=== PATIENT | female | born 1965 | race Caucasian/White ===

== ENCOUNTER 2016-11-28 10:14 | Emergency (ER) | payer OTHER ==
[~2016-11-28] VITALS: Wt 114.7 kg
[~2016-11-28 10:14] MED LIST: DICL100G37 TOP; MET25 PO; METF500T4 PO; NAPR-688 PO; PRED20TA PO; TRAM50TA2 PO
[2016-11-28] MEDS ORDERED: CEFTRIAXONE 1 GM/50 ML (PMX) 50 ML IVPB STA (10:58)
[2016-11-28] MEDS ORDERED: KETOROLAC 30 MG INJ IV STA (10:58)
[2016-11-28] MEDS ORDERED: SOD CHLORIDE 0.9% 1,000 ML IV STA (10:58)
[2016-11-28] MEDS ORDERED: TRIMETHOPRIM/SULFAMETHOX (DS) TAB PO ONE (11:00)
[2016-11-28 11:18] LABS: ADD SCAN DIFF NO
[2016-11-28 11:24] LABS: HEMATOCRIT 42.3 % (37.0-47.0); HEMOGLOBIN 13.4 g/dl (12.0-16.0); MEAN CORPUSCULAR HGB CONC 31.7 g/dl (32.0-37.0); MEAN CORPUSCULAR VOLUME 88.3 fl (82.0-101.0); MEAN PLATELET VOLUME 10.3 fl (7.4-10.4); PLATELET COUNT 280 10^3/UL (140-415); RED BLOOD COUNT 4.79 10^6/ul (4.20-5.40); RED CELL DISTRIBUTION WIDTH 15.9 % (11.5-14.5); WHITE BLOOD COUNT 23.3 10^3/ul (4.8-10.8)
[2016-11-28 11:29] LABS: ALBUMIN 3.8 g/dl (3.3-4.9)
[2016-11-28 11:30] LABS: POTASSIUM 4.1 mmol/L (3.5-5.1)
[2016-11-28 11:32] LABS: BILIRUBIN,INDIRECT 0.6 mg/dl (0-1.1); BILIRUBIN,TOTAL 0.6 mg/dl (0.2-1.3); CREATININE 0.47 mg/dl (0.44-1.00)
[2016-11-28 11:33] LABS: ALBUMIN/GLOBULIN RATIO 1.05; CALCIUM 9.1 mg/dl (8.4-10.2); TOTAL PROTEIN 7.4 g/dl (6.1-8.1)
[2016-11-28] MEDS ORDERED: INSULIN LISPRO 100 UNIT/ML VIAL SC STA (11:41)
[2016-11-28 11:52] LABS: ADD UMIC NO; URINE BILIRUBIN (Dip) NEGATIVE (NEGATIVE); URINE BLOOD (Dip) NEGATIVE (NEGATIVE); URINE COLOR LT. YELLOW (YELLOW); URINE KETONES (Dip) TRACE (NEGATIVE); URINE LEUKOCYTE ESTERASE (Dip) NEGATIVE (NEGATIVE); URINE NITRITE (Dip) NEGATIVE (NEGATIVE); URINE TOTAL PROTEIN (Dip) NEGATIVE (NEGATIVE); URINE UROBILINOGEN (Dip) 0.2 E.U./dL (0.1-1.0)
--- NOTE | 2016-11-28 11:58 | RADRPT ---
PROCEDURE: Bilateral breast ultrasound, complete. CLINICAL INDICATION: 51-year-old female with breast pain. Cellulitis. Rule out abscess. TECHNIQUE: Whole breast and axillary ultrasound is performed. COMPARISON: None FINDINGS: Ultrasound of the breast shows skin thickening and edema of the right breast. There is no underlyin g abscess or fluid collection identified. The left breast appears normal. IMPRESSION: Diffuse skin thickening and edema of the right breast suggestive of mastitis. No evidence of fluid collection or abscess. Diagnostic mammography is advised to complete breast imaging workup. BIRADS 0 (Incomplete - need additional imaging evaluation) RPTAT: VV .Willie Nam MD, Date Time Electronically viewed and signed by .Willie Nam MD, on 11/28/2016 11:58 .L/
[2016-11-28] MEDS ORDERED: BACTDS PO (13:33)
[2016-11-28] MEDS ORDERED: CEPH-443 PO (13:33)
[2016-11-28] MEDS ORDERED: AMOX1TAB10 PO (13:33)
[2016-11-28] MEDS ORDERED: IBUP-1542 PO (13:35)
--- NOTE | 2016-11-28 13:39 | ERD ---
ER Documentation Chief Complaint Date/Time DATE: 11/28/16 TIME: 13:36 Chief Complaint RIGHT BREAST PAIN X 2 DAYS HPI This 51-year-old female presents with right breast pain and redness for 2 days. She denies fevers, vomiting or inciting events. Started with a small bump on the lateral aspect of the right breast. ROS All systems reviewed and are negative except as per history of present illness. Medications Home Meds Active Scripts Ibuprofen* (Motrin*) 600 Mg Tab, 600 MG PO Q6, #20 TAB Prov:CLARA RODRIGUEZ MD 11/28/16 Cephalexin* (Keflex*) 500 Mg Capsule, 500 MG PO QID for 10 Days, CAP Prov:CLARA RODRIGUEZ MD 11/28/16 Sulfamethoxazole-Trimethoprim* (Bactrim* DS) 800-160 Mg Tab, 1 TAB PO BID for 10 Days, TAB Prov:CLARA RODRIGUEZ MD 11/28/16 Diclofenac Sodium* (Voltaren* Gel) 1% -100 Gm Gel, 2 GM TOP QID, #1 TUB Prov:KELLY ESTRADA PA-C 09/26/15 Naproxen* (Naproxen*) 500 Mg Tablet, 500 MG PO BID Y for PAIN, #30 TAB Prov:KELLY ESTRADA PA-C 09/26/15 Metformin* (Glucophage*) 500 Mg Tab, 500 MG PO DAILY, #30 TAB Prov:LAQUITA GARCIA MD 07/04/15 Reported Medications Methotrexate* (Methotrexate*) 2.5 Mg Tab, 2.5 MG PO weekly 06/22/13 Prednisone (Prednisone) 20 Mg Tablet, 20 MG PO DAILY 04/01/13 Tramadol HCl (Tramadol HCl) 50 Mg Tablet, 50 MG PO Q6 11/10/11 Discontinued Scripts Amoxicillin/Potassium Clav (Amox-Clav 875-125 mg Tablet) 875-125 mg Tab, 1 TAB PO BID for 10 Days, #14 TAB Prov:CLARA RODRIGUEZ MD 11/28/16 Allergies Allergies: Coded Allergies: No Known Drug Allergy (Verified Allergy, Mild, 11/28/16) PMhx/Soc History of Surgery: Yes (C SECTION ) Anesthesia Reaction: No Hx Neurological Disorder: No Hx Respiratory Disorders: No Hx Cardiac Disorders: No Hx Psychiatric Problems: No Hx Miscellaneous Medical Probl: Yes (arthritis, dm) Hx Alcohol Use: No Hx Substance Use: No Hx Tobacco Use: No Smoking Status: Never smoker Physical Exam Vitals Vital Signs Date Time Temp Pulse Resp B/P Pulse Ox O2 Delivery O2 Flow Rate FiO2 11/28/16 10:18 98.0 72 18 134/61 98 Physical Exam Const: [] Alert, [id number]. Head: Atraumatic Eyes: Normal Conjunctiva ENT: Normal External Ears, Nose and Mouth. Neck: Full range of motion..~ No meningismus. Resp: Clear to auscultation bilaterally Cardio: Regular rate and rhythm, no murmurs Abd: Soft, non tender, non distended. Normal bowel sounds Skin: No petechiae or rashes. There is some warmth and erythema extending approximately 50% of the right breast. There is no appreciable fluctuance, significant induration and no active discharge for the small abrasion on the lateral aspect of the right breast Back: No midline or flank tenderness Ext: No cyanosis, or edema Neur: Awake and alert Psych: Normal Mood and Affect Result Diagram: 11/28/16 1100 11/28/16 1100 Results 24 hrs Laboratory Tests Test 11/28/16 11:00 11/28/16 11:20 11/28/16 13:34 White Blood Count 23.310^3/ul Red Blood Count 4.7910^6/ul Hemoglobin 13.4g/dl Hematocrit 42.3% Mean Corpuscular Volume 88.3fl Mean Corpuscular Hemoglobin 28.0pg Mean Corpuscular Hemoglobin Concent 31.7g/dl Red Cell Distribution Width 15.9% Platelet Count 21320^3/UL Mean Platelet Volume 10.3fl Neutrophils % 75.0% Band Neutrophils % 16.0% Lymphocytes % 8.0% Monocytes % 1.0% Neutrophils # 17.510^3/ul Lymphocytes # 1.910^3/ul Monocytes # 0.210^3/ul Differential Comment MANUAL DIFF Large Platelets OCCASIONAL Sodium Level 140mmol/L Potassium Level 4.1mmol/L Chloride Level 101mmol/L Carbon Dioxide Level 25mmol/L Anion Gap 18 Blood Urea Nitrogen 8mg/dl Creatinine 0.47mg/dl Glucose Level 431mg/dl Calcium Level 9.1mg/dl Total Bilirubin 0.6mg/dl Direct Bilirubin 0.00mg/dl Indirect Bilirubin 0.6mg/dl Aspartate Amino Transf (AST/SGOT) 32IU/L Alanine Aminotransferase (ALT/SGPT) 33IU/L Alkaline Phosphatase 166IU/L Total Protein 7.4g/dl Albumin 3.8g/dl Globulin 3.60g/dl Albumin/Globulin Ratio 1.05 Lipase 44U/L Urine Color LT. YELLOW Urine Clarity CLEAR Urine pH 6.0 Urine Specific [place] 1.010 Urine Ketones TRACE Urine Nitrite NEGATIVE Urine Bilirubin NEGATIVE Urine Urobilinogen 0.2 E.U./dL Urine Leukocyte Esterase NEGATIVE Urine Hemoglobin NEGATIVE Urine Glucose 0.5%% Urine Total Protein NEGATIVE Bedside Glucose 279mg/dL Current Medications Medications (Trade) Dose Ordered Sig/Lexii Route PRN Reason Start Time Stop Time Status Last Admin Dose Admin Sodium Chloride 1,000 ml @ 1,000 mls/hr Q1H STAT IV 11/28/16 10:58 11/28/16 11:57 DC 11/28/16 11:13 Ceftriaxone Sodium (Rocephin) 50 ml @ 100 mls/hr ONCE STAT IVPB 11/28/16 10:58 11/28/16 11:27 DC 11/28/16 11:13 Trimethoprim/ Sulfamethoxazole (Bactrim (Ds)) 1 tab ONCE ONCE PO 11/28/16 11:00 11/28/16 11:02 DC 11/28/16 11:13 Ketorolac Tromethamine (Toradol) 30 mg ONCE STAT IV 11/28/16 10:58 11/28/16 11:02 DC 11/28/16 11:13 Insulin Human Lispro (Humalog) 10 unit ONCE STAT SC 11/28/16 11:41 11/28/16 11:43 DC 11/28/16 11:48 Procedures/MDM CBC shows white blood cell count of 23. Patient has elevated blood sugar over 400. Patient was given 1 L normal saline and 10 units of Humalog IM. Patient was given Toradol 30 mg IV, Rocephin 1 g IV Bactrim double strength p.o. Patient had improved pain no fevers or Sirs criteria throughout the ED course. Patient presents with a 2 day history of cellulitis or mastoiditis in the right breast. Patient has hyperglycemia as well. Patient has no signs or symptoms of sepsis and we will treat as an outpatient with close follow-up. Patient is advised to have a recheck in 2 days, otherwise sooner for fevers, vomiting, new or worsening symptoms. The patient was stable with no new complaints during the ER course. Clinically, there is no current evidence to suggest meningitis, sepsis, acute abdomen, pneumonia, acute coronary syndrome, pulmonary embolism, or any other emergent condition appearing to require further evaluation or hospitalization. The patient should certainly return for any new or worsening symptoms per the aftercare instructions. They should otherwise follow-up with her primary care doctor for reevaluation this week. Repeat blood sugar was 270. Right breast ultrasound shows no evidence of abscess. Patient was advised to follow-up with primary doctor for mammogram and breast cancer screening. Departure Diagnosis: Primary Impression: Mastitis Additional Impressions: Cellulitis Site of cellulitis: unspecified site Qualified Code: L03.90 - Cellulitis, unspecified cellulitis site Hyperglycemia Condition: Stable Patient Instructions: Hyperglycemia (High Blood Sugar), Mastitis Additional Instructions: CHEQUE OTRO VEZ EN 2 IGLESIAS, MAS PRONTO PARA FIBRE, VOMITO , NUEVA SIMPTOMAS. CLARA RODRIGUEZ MD Nov 28, 2016 13:39
[2016-11-28 13:46] LABS: LYMPHOCYTES # 1.9 10^3/ul (0.8-2.9); MONOCYTE # 0.2 10^3/ul (0.3-0.9); NEUTROPHIL # 17.5 10^3/ul (1.6-7.5)
== END 2016-11-28 13:57 | disposition home or self-care (01) ==
LOC: FTE 10:14
DX: N61.0 Mastitis without abscess (principal); L03.90 Cellulitis, unspecified; E11.65 Type 2 diabetes mellitus with hyperglycemia; Z79.84 Long term (current) use of oral hypoglycemic drugs
CPT/HCPCS: 36415; 76642; 80053; 81003; 82962; 83690; 85025; 96361; 96365; 96372; 96375; J0696; J1815; J1885; J7030; Z7502; Z7610

== ENCOUNTER 2016-12-01 11:55 | Emergency (ER) | payer OTHER ==
[~2016-12-01] VITALS: Wt 90.6 kg
[~2016-12-01 11:55] MED LIST changes: +BACTDS PO; +CEPH-443 PO; +IBUP-1542 PO
[2016-12-01] MEDS ORDERED: TRAM50TA2 PO (12:22)
[2016-12-01] MEDS ORDERED: traMADol 50 MG TAB PO ONE (12:30)
[2016-12-01] MEDS ORDERED: CEFTRIAXONE 1 GM INJ IM ONE (12:30)
[2016-12-01] MEDS ORDERED: LIDOCAINE 1% (MDV) 20 ML INJ SC ONE (12:30)
--- NOTE | 2016-12-01 12:32 | ERD ---
ER Documentation Chief Complaint Date/Time DATE: 12/01/16 TIME: 12:29 Chief Complaint RIGHT BREAST SWELLING AND REDNESS. HERE FOR RECHECK, INCREASED PAIN HPI This 51-year-old female was seen by me 3 days ago for right breast mastitis. She had no abscess at that time. She was given Rocephin and discharged home on Bactrim and Keflex. She is here for recheck. She denies fevers, vomiting. She states that the redness and pain is improved although there is a some slight increase in pain. ROS All systems reviewed and are negative except as per history of present illness. Medications Home Meds Active Scripts Tramadol HCl (Tramadol HCl) 50 Mg Tablet, 50 MG PO Q4 Y for PAIN, #18 TAB Prov:CLARA RODRIGUEZ MD 12/01/16 Ibuprofen* (Motrin*) 600 Mg Tab, 600 MG PO Q6, #20 TAB Prov:CLARA RODRIGUEZ MD 11/28/16 Cephalexin* (Keflex*) 500 Mg Capsule, 500 MG PO QID for 10 Days, CAP Prov:CLARA RODRIGUEZ MD 11/28/16 Sulfamethoxazole-Trimethoprim* (Bactrim* DS) 800-160 Mg Tab, 1 TAB PO BID for 10 Days, TAB Prov:CLARA RODRIGUEZ MD 11/28/16 Diclofenac Sodium* (Voltaren* Gel) 1% -100 Gm Gel, 2 GM TOP QID, #1 TUB Prov:KELLY ESTRADA PA-C 09/26/15 Naproxen* (Naproxen*) 500 Mg Tablet, 500 MG PO BID Y for PAIN, #30 TAB Prov:KELLY ESTRADA PA-C 09/26/15 Metformin* (Glucophage*) 500 Mg Tab, 500 MG PO DAILY, #30 TAB Prov:LAQUITA GARCIA MD 07/04/15 Reported Medications Methotrexate* (Methotrexate*) 2.5 Mg Tab, 2.5 MG PO weekly 06/22/13 Prednisone (Prednisone) 20 Mg Tablet, 20 MG PO DAILY 04/01/13 Tramadol HCl (Tramadol HCl) 50 Mg Tablet, 50 MG PO Q6 11/10/11 Discontinued Scripts Amoxicillin/Potassium Clav (Amox-Clav 875-125 mg Tablet) 875-125 mg Tab, 1 TAB PO BID for 10 Days, #14 TAB Prov:CLARA RODRIGUEZ MD 11/28/16 Allergies Allergies: Coded Allergies: No Known Drug Allergy (Verified Allergy, Mild, 11/28/16) PMhx/Soc History of Surgery: Yes (C SECTION ) Anesthesia Reaction: No Hx Neurological Disorder: No Hx Respiratory Disorders: No Hx Cardiac Disorders: No Hx Psychiatric Problems: No Hx Miscellaneous Medical Probl: Yes (arthritis, dm) Hx Alcohol Use: No Hx Substance Use: No Hx Tobacco Use: No Physical Exam Vitals Vital Signs Date Time Temp Pulse Resp B/P Pulse Ox O2 Delivery O2 Flow Rate FiO2 12/01/16 11:58 97.2 92 21 132/76 98 Physical Exam Const: [] Alert, [id number] per Head: Atraumatic Eyes: Normal Conjunctiva ENT: Normal External Ears, Nose and Mouth. Neck: Full range of motion..~ No meningismus. Resp: Clear to auscultation bilaterally Cardio: Regular rate and rhythm, no murmurs Abd: Soft, non tender, non distended. Normal bowel sounds Skin: No petechiae or rashes. On the right breast there is erythema with less warmth than previous examination. There is also less erythema. There is a small area of tenderness possibly some very superficial localization but no significant abscess appreciated. Back: No midline or flank tenderness Ext: No cyanosis, or edema Neur: Awake and alert Psych: Normal Mood and Affect Results 24 hrs Current Medications Medications (Trade) Dose Ordered Sig/Lexii Route PRN Reason Start Time Stop Time Status Last Admin Dose Admin Ceftriaxone Sodium (Rocephin) 1 gm ONCE ONCE IM 12/01/16 12:30 12/01/16 12:31 Lidocaine (Xylocaine 1% (Mdv) 20 ml) 20 ml ONCE ONCE SC 12/01/16 12:30 12/01/16 12:31 Tramadol HCl (Ultram) 50 mg ONCE ONCE PO 12/01/16 12:30 12/01/16 12:31 Procedures/MDM This patient presents with a partially treated right breast mastitis. It is improving although is not completely localized. Patient may need incision and drainage but it is still too early. Patient will be given Rocephin 1 g IM and instructions continue Bactrim and Keflex and warm compresses and recheck an additional 2-3 days. There is no signs or symptoms of Sirs criteria, sepsis, additional emergent conditions today. She should return sooner however for fevers, vomiting, new symptoms. Departure Diagnosis: Primary Impression: Cellulitis Site of cellulitis: unspecified site Qualified Code: L03.90 - Cellulitis, unspecified cellulitis site Condition: Stable Patient Instructions: Cellulitis Additional Instructions: cheque otro vez 2-3 jackson para cheque otor vez para abscesso. regresa mas pronto para fiebres, nueva simptomas. CLARA RODRIGUEZ MD Dec 01, 2016 12:32
== END 2016-12-01 13:25 | disposition home or self-care (01) ==
LOC: FTE 11:55
DX: L03.90 Cellulitis, unspecified (principal); E11.9 Type 2 diabetes mellitus without complications; Z79.84 Long term (current) use of oral hypoglycemic drugs
CPT/HCPCS: J0696; Z7610; 96372

== ENCOUNTER 2016-12-15 11:24 | Emergency (ER) | payer OTHER ==
[~2016-12-15] VITALS: Ht 152.4 cm; Wt 114.0 kg
[2016-12-15 11:30] VITALS: Ht 152.4 cm; Wt 114.0 kg
[2016-12-15] MEDS ORDERED: BACTDS PO (12:48)
[2016-12-15] MEDS ORDERED: CEPH-443 PO (12:48)
[2016-12-15] MEDS ORDERED: TRAM50TA2 PO (12:49)
[2016-12-15] MEDS ORDERED: IBUP-1542 PO (12:49)
[2016-12-15] MEDS ORDERED: CLINDAMYCIN 300 MG INJ IM ONE (13:00)
[2016-12-15] MEDS ORDERED: IBUPROFEN 600 MG TAB PO ONE (13:00)
[2016-12-15] MEDS ORDERED: traMADol 50 MG TAB PO ONE (13:00)
--- NOTE | 2016-12-15 13:04 | ERD ---
ER Documentation Chief Complaint Date/Time DATE: 12/15/16 TIME: 13:02 Chief Complaint RT BREAST ASBCESS CURRENTLY DRAINING. PREVIOULY AT [facility] ED FOR SAME PROBLEM. HPI This 51-year-old female presents for recheck on right breast mastitis seen by me proximal one half weeks ago 2. She completed her antibiotics complains of drainage from the area of previous redness. Swelling and redness is significantly improved. Her primary complaints of discharge and pain. ROS All systems reviewed and are negative except as per history of present illness. Medications Home Meds Active Scripts Ibuprofen* (Motrin*) 600 Mg Tab, 600 MG PO Q6, #20 TAB Prov:CLARA RODRIGUEZ MD 12/15/16 Tramadol HCl (Tramadol HCl) 50 Mg Tablet, 50 MG PO Q4 Y for PAIN, #20 TAB Prov:CLARA RODRIGUEZ MD 12/15/16 Cephalexin* (Keflex*) 500 Mg Capsule, 500 MG PO QID for 10 Days, CAP Prov:CLARA RODRIGUEZ MD 12/15/16 Sulfamethoxazole-Trimethoprim* (Bactrim* DS) 800-160 Mg Tab, 1 TAB PO BID for 10 Days, TAB Prov:CLARA RODRIGUEZ MD 12/15/16 Tramadol HCl (Tramadol HCl) 50 Mg Tablet, 50 MG PO Q4 Y for PAIN, #18 TAB Prov:CLARA RODRIGUEZ MD 12/01/16 Ibuprofen* (Motrin*) 600 Mg Tab, 600 MG PO Q6, #20 TAB Prov:CLARA RODRIGUEZ MD 11/28/16 Cephalexin* (Keflex*) 500 Mg Capsule, 500 MG PO QID for 10 Days, CAP Prov:CLARA RODRIGUEZ MD 11/28/16 Sulfamethoxazole-Trimethoprim* (Bactrim* DS) 800-160 Mg Tab, 1 TAB PO BID for 10 Days, TAB Prov:CLARA RODRIGUEZ MD 11/28/16 Diclofenac Sodium* (Voltaren* Gel) 1% -100 Gm Gel, 2 GM TOP QID, #1 TUB Prov:KELLY ESTRADA PA-C 09/26/15 Naproxen* (Naproxen*) 500 Mg Tablet, 500 MG PO BID Y for PAIN, #30 TAB Prov:KELLY ESTRADA PA-C 09/26/15 Metformin* (Glucophage*) 500 Mg Tab, 500 MG PO DAILY, #30 TAB Prov:LAQUITA GARCIA MD 07/04/15 Reported Medications Methotrexate* (Methotrexate*) 2.5 Mg Tab, 2.5 MG PO weekly 06/22/13 Prednisone (Prednisone) 20 Mg Tablet, 20 MG PO DAILY 04/01/13 Tramadol HCl (Tramadol HCl) 50 Mg Tablet, 50 MG PO Q6 11/10/11 Allergies Allergies: Coded Allergies: No Known Drug Allergy (Verified Allergy, Mild, 11/28/16) PMhx/Soc History of Surgery: Yes (C SECTION ) Anesthesia Reaction: No Hx Neurological Disorder: No Hx Respiratory Disorders: No Hx Cardiac Disorders: No Hx Psychiatric Problems: No Hx Miscellaneous Medical Probl: Yes (arthritis, dm) Hx Alcohol Use: No Hx Substance Use: No Hx Tobacco Use: No Physical Exam Vitals Vital Signs Date Time Temp Pulse Resp B/P Pulse Ox O2 Delivery O2 Flow Rate FiO2 12/15/16 11:30 98.0 84 20 146/69 97 Physical Exam Const: [] Alert, [id number]. Head: Atraumatic Eyes: Normal Conjunctiva ENT: Normal External Ears, Nose and Mouth. Neck: Full range of motion..~ No meningismus. Resp: Clear to auscultation bilaterally Cardio: Regular rate and rhythm, no murmurs Abd: Soft, non tender, non distended. Normal bowel sounds Skin: No petechiae or rashes. There is improved redness and induration on the right breast. There are 3 areas of superficial drainage without significant residual fluctuance. There is no significant induration or streaking. Back: No midline or flank tenderness Ext: No cyanosis, or edema Neur: Awake and alert Psych: Normal Mood and Affect Results 24 hrs Current Medications Medications (Trade) Dose Ordered Sig/Lexii Route PRN Reason Start Time Stop Time Status Last Admin Dose Admin Clindamycin Phosphate (Cleocin) 600 mg ONCE ONCE IM 12/15/16 13:00 12/15/16 13:01 Ibuprofen (Motrin) 600 mg ONCE ONCE PO 12/15/16 13:00 12/15/16 13:01 12/15/16 12:50 Tramadol HCl (Ultram) 50 mg ONCE ONCE PO 12/15/16 13:00 12/15/16 13:01 12/15/16 12:50 Procedures/MDM This patient presents with right breast mastitis and abscess which is spontaneously draining. She will be given clindamycin 600 mg IM for likely some slight residual infection and will be discharged with prescription to continue Bactrim and Keflex and will be given tramadol and ibuprofen for pain as well. Patient should complete antibiotics, recheck for worsening redness, fevers, new worsening symptoms otherwise follow-up with primary doctor for breast cancer screening and further evaluation. She has previously been recommended to see primary doctor for breast cancer screening but presents today to the ER. Departure Diagnosis: Primary Impression: Abscess Condition: Stable Patient Instructions: Abscess, Antiobiotic Treatment Only Additional Instructions: CONTINUA ANTIBIOTICOS. JOSE RAFAEL ALSTON, BEATA LYNN. CLARA RODRIGUEZ MD Dec 15, 2016 13:04
[2016-12-15 13:56] VITALS: BP 120/58; PULSE 67; RESP 16; TEMP 97.8
== END 2016-12-15 13:56 | disposition home or self-care (01) ==
LOC: FTE 11:24
DX: N61.1 Abscess of the breast and nipple (principal); E11.9 Type 2 diabetes mellitus without complications; Z79.84 Long term (current) use of oral hypoglycemic drugs
CPT/HCPCS: 96372; Z7502; Z7610

== ENCOUNTER 2017-02-16 12:39 | Emergency (ER) | payer OTHER ==
[~2017-02-16] VITALS: Ht 157.5 cm; Wt 113.5 kg
[2017-02-16 12:48] VITALS: Ht 157.5 cm; Wt 113.5 kg
[2017-02-16] MEDS ORDERED: CEPHALEXIN 500 MG CAP PO STA (13:46)
[2017-02-16] MEDS ORDERED: TRIMETHOPRIM/SULFAMETHOX (DS) TAB PO STA (13:46)
[2017-02-16] MEDS ORDERED: IBUPROFEN 600 MG TAB PO STA (13:46)
[2017-02-16] MEDS ORDERED: METF500T PO (13:53)
[2017-02-16] MEDS ORDERED: CEPH-443 PO (13:53)
[2017-02-16] MEDS ORDERED: SULF1TAB31 PO (13:53)
[2017-02-16] MEDS ORDERED: IBUP-1542 PO (14:03)
--- NOTE | 2017-02-16 14:17 | ERD ---
ER Documentation Chief Complaint Date/Time DATE: 02/16/17 TIME: 14:11 Chief Complaint ABSCESS TO BUTTOCKS X 4 DAYS HPI This is a 52-year-old female with history of diabetes type 2 presenting to the emergency department complaining of complaining of abscess to her right buttock for the past 4 days. Patient states the pain is around 7 out of 10. She denies any fevers, drainage. She denies any and medication for this. In addition patient states that she has ran out of her metformin 500mg BID past couple days. ROS All systems reviewed and are negative except as per history of present illness. Medications Home Meds Active Scripts Ibuprofen* (Motrin*) 600 Mg Tab, 600 MG PO Q6H Y for PAIN AND OR ELEVATED TEMP, #30 TAB Prov:JOHANNE MCCANN PA-C 02/16/17 Metformin Hcl (Glucophage) 500 Mg Tablet, 500 MG PO WITH MEALS, #90 TAB Prov:JOHANNE MCCANN PA-C 02/16/17 Sulfamethoxazole/Trimethoprim* (Bactrim Ds* Tablet) 1 Each Tablet, 1 TAB PO BID , #14 TAB Prov:JOHANNE MCCANN PA-C 02/16/17 Cephalexin* (Keflex*) 500 Mg Capsule, 500 MG PO QID for 10 Days, CAP Prov:JOHANNE MCCANN PA-C 02/16/17 Ibuprofen* (Motrin*) 600 Mg Tab, 600 MG PO Q6, #20 TAB Prov:CLARA RODRIGUEZ MD 12/15/16 Tramadol HCl (Tramadol HCl) 50 Mg Tablet, 50 MG PO Q4 Y for PAIN, #20 TAB Prov:CLARA RODRIGUEZ MD 12/15/16 Cephalexin* (Keflex*) 500 Mg Capsule, 500 MG PO QID for 10 Days, CAP Prov:CLARA RODRIGUEZ MD 12/15/16 Sulfamethoxazole-Trimethoprim* (Bactrim* DS) 800-160 Mg Tab, 1 TAB PO BID for 10 Days, TAB Prov:CLARA RODRIGUEZ MD 12/15/16 Tramadol HCl (Tramadol HCl) 50 Mg Tablet, 50 MG PO Q4 Y for PAIN, #18 TAB Prov:CLARA RODRIGUEZ MD 12/01/16 Ibuprofen* (Motrin*) 600 Mg Tab, 600 MG PO Q6, #20 TAB Prov:CLARA RODRIGUEZ MD 11/28/16 Cephalexin* (Keflex*) 500 Mg Capsule, 500 MG PO QID for 10 Days, CAP Prov:CLARA RODRIGUEZ MD 11/28/16 Sulfamethoxazole-Trimethoprim* (Bactrim* DS) 800-160 Mg Tab, 1 TAB PO BID for 10 Days, TAB Prov:CLARA RODRIGUEZ MD 11/28/16 Diclofenac Sodium* (Voltaren* Gel) 1% -100 Gm Gel, 2 GM TOP QID, #1 TUB Prov:KELLY ESTRADA PA-C 09/26/15 Naproxen* (Naproxen*) 500 Mg Tablet, 500 MG PO BID Y for PAIN, #30 TAB Prov:KELLY ESTRADA PA-C 09/26/15 Metformin* (Glucophage*) 500 Mg Tab, 500 MG PO DAILY, #30 TAB Prov:LAQUITA GARCIA MD 07/04/15 Reported Medications Methotrexate* (Methotrexate*) 2.5 Mg Tab, 2.5 MG PO weekly 06/22/13 Prednisone (Prednisone) 20 Mg Tablet, 20 MG PO DAILY 04/01/13 Tramadol HCl (Tramadol HCl) 50 Mg Tablet, 50 MG PO Q6 11/10/11 Allergies Allergies: Coded Allergies: No Known Drug Allergy (Verified Allergy, Mild, 11/28/16) PMhx/Soc History of Surgery: Yes (C SECTION ) Anesthesia Reaction: No Hx Neurological Disorder: No Hx Respiratory Disorders: No Hx Cardiac Disorders: No Hx Psychiatric Problems: No Hx Miscellaneous Medical Probl: Yes (arthritis, dm) Hx Alcohol Use: No Hx Substance Use: No Hx Tobacco Use: No Smoking Status: Never smoker Physical Exam Vitals Vital Signs Date Time Temp Pulse Resp B/P Pulse Ox O2 Delivery O2 Flow Rate FiO2 02/16/17 12:48 98.3 113 18 148/78 98 Physical Exam General: WD/WN, in no apparent distress, non-toxic appearing HENT: NC/AT Eyes: Conjunctiva normal Neck: Supple Pulm: Clear to auscultation, normal labored breathing; no wheezing/rales/ rhonchi heard CV: Good capillary refill GI: Non-distended, no guarding Back: No masses Ext: No clubbing, cyanosis, or edema Neuro: Moves on all fours Skin: 4cm mild erythematous indurated, with central scab, no fluctuance or purulence Psych: Normal mood Results 24 hrs Current Medications Medications (Trade) Dose Ordered Sig/Lexii Route PRN Reason Start Time Stop Time Status Last Admin Dose Admin Cephalexin (Keflex) 500 mg ONCE STAT PO 02/16/17 13:46 02/16/17 13:50 DC 02/16/17 14:09 Trimethoprim/ Sulfamethoxazole (Bactrim (Ds)) 1 tab ONCE STAT PO 02/16/17 13:46 02/16/17 13:50 DC 02/16/17 14:09 Ibuprofen (Motrin) 600 mg ONCE STAT PO 02/16/17 13:46 02/16/17 13:50 DC 02/16/17 14:09 Procedures/MDM This is a 52-year-old female with a history of diabetes type 2 presenting to the emergency department with a small patch of cellulitis on her right buttock, there was no evidence of fluctuance or drainage, no evidence of lymphangitis, osteomyelitis. Patient is appropriate for outpatient antibiotics. Patient has stable vital signs and appears well. In the ED, patient was given Keflex and Bactrim. She was given a prescription for Keflex and Bactrim for 7-10 days. in addition patient has ran out of metformin, I have refilled her prescription for 1 month. Patient stable for discharge for home with precautions to return to emergency department for any worsening symptoms. She understands and agrees with this plan Departure Diagnosis: Primary Impression: Cellulitis Site of cellulitis: buttock Qualified Code: L03.317 - Cellulitis of buttock Condition: Stable Patient Instructions: Abscess, Antiobiotic Treatment Only, Cellulitis Additional Instructions: Visite a campuzano conrado schuster para un EXAMEN.Regrese a estas instalaciones si no se mejora tod esperbamos o tod le dijimos. Lynd toda la medicina kathie y tod se le indic. Regrese a estas instalaciones si no se mejora tod esperbamos o tod le dijimos. Lynd toda la medicina kathie y tod se le indic. Regrese a estas instalaciones si no se mejora tod esperbamos o tod le dijimos. JOHANNE MCCANN PA-C Feb 16, 2017 14:17
== END 2017-02-16 14:21 | disposition home or self-care (01) ==
LOC: FTE 12:39
DX: L03.317 Cellulitis of buttock (principal); E11.9 Type 2 diabetes mellitus without complications; Z79.84 Long term (current) use of oral hypoglycemic drugs
CPT/HCPCS: Z7610 ×3; 99284

== ENCOUNTER 2017-04-08 11:57 | Emergency (ER) | payer OTHER ==
[~2017-04-08] VITALS: Ht 165.1 cm; Wt 114.0 kg
[~2017-04-08 11:57] MED LIST changes: +METF500T PO; +SULF1TAB31 PO
[2017-04-08 12:12] VITALS: Ht 165.1 cm; Wt 114.0 kg
[2017-04-08] MEDS ORDERED: IBUP800T25 PO (12:42)
[2017-04-08] MEDS ORDERED: CEPH-443 PO (12:42)
[2017-04-08] MEDS ORDERED: SULF1TAB31 PO (12:42)
[2017-04-08] MEDS ORDERED: MTF1000T PO (12:42)
--- NOTE | 2017-04-08 12:47 | ERD ---
ER Documentation Chief Complaint Date/Time DATE: 04/08/17 TIME: 12:43 Chief Complaint right hand pain/swelling x 3 days HPI Patient is a 52-year-old female who has 2 complaints. She is diabetic and she ran out of her metformin, she last took yesterday and would like a refill. She also states she has had swelling on her right hand fourth finger secondary to what she thinks is a bug bite although she did not witness the bite. She has pain at the site that is throbbing 8 out of 10. Is been no bleeding or drainage. No fever. No numbness or tingling. ROS All systems reviewed and are negative except as per history of present illness. Medications Home Meds Active Scripts Metformin* (Glucophage*) 1,000 Mg Tablet, 1000 MG PO BID, #60 TAB Prov:ANGIE SALINAS PA-C 04/08/17 Cephalexin* (Keflex*) 500 Mg Capsule, 500 MG PO QID for 7 Days, CAP Prov:ANGIE SALINAS PA-C 04/08/17 Ibuprofen* (Motrin*) 800 Mg Tab, 800 MG PO Q6, #30 TAB Prov:ANGIE SALINAS PA-C 04/08/17 Sulfamethoxazole/Trimethoprim* (Bactrim Ds* Tablet) 1 Each Tablet, 1 TAB PO BID , #14 TAB Prov:ANGIE SALINAS PA-C 04/08/17 Ibuprofen* (Motrin*) 600 Mg Tab, 600 MG PO Q6H Y for PAIN AND OR ELEVATED TEMP, #30 TAB Prov:JOHANNE MCCANN PA-C 02/16/17 Metformin Hcl (Glucophage) 500 Mg Tablet, 500 MG PO WITH MEALS, #90 TAB Prov:JOHANNE MCCANN PA-C 02/16/17 Sulfamethoxazole/Trimethoprim* (Bactrim Ds* Tablet) 1 Each Tablet, 1 TAB PO BID , #14 TAB Prov:JOHANNE MCCANN PA-C 02/16/17 Cephalexin* (Keflex*) 500 Mg Capsule, 500 MG PO QID for 10 Days, CAP Prov:JOHANNE MCCANN PA-C 02/16/17 Ibuprofen* (Motrin*) 600 Mg Tab, 600 MG PO Q6, #20 TAB Prov:CLARA RODRIGUEZ MD 12/15/16 Tramadol HCl (Tramadol HCl) 50 Mg Tablet, 50 MG PO Q4 Y for PAIN, #20 TAB Prov:CLARA RODRIGUEZ MD 12/15/16 Cephalexin* (Keflex*) 500 Mg Capsule, 500 MG PO QID for 10 Days, CAP Prov:CLARA RODRIGUEZ MD 12/15/16 Sulfamethoxazole-Trimethoprim* (Bactrim* DS) 800-160 Mg Tab, 1 TAB PO BID for 10 Days, TAB Prov:CLRAA RODRIGUEZ MD 12/15/16 Tramadol HCl (Tramadol HCl) 50 Mg Tablet, 50 MG PO Q4 Y for PAIN, #18 TAB Prov:CLARA RODRIGUEZ MD 12/01/16 Ibuprofen* (Motrin*) 600 Mg Tab, 600 MG PO Q6, #20 TAB Prov:CLARA ORDRIGUEZ MD 11/28/16 Cephalexin* (Keflex*) 500 Mg Capsule, 500 MG PO QID for 10 Days, CAP Prov:CLARA RODRIGUEZ MD 11/28/16 Sulfamethoxazole-Trimethoprim* (Bactrim* DS) 800-160 Mg Tab, 1 TAB PO BID for 10 Days, TAB Prov:CLARA RODRIGUEZ MD 11/28/16 Diclofenac Sodium* (Voltaren* Gel) 1% -100 Gm Gel, 2 GM TOP QID, #1 TUB Prov:KELLY ESTRADA PA-C 09/26/15 Naproxen* (Naproxen*) 500 Mg Tablet, 500 MG PO BID Y for PAIN, #30 TAB Prov:KELLY ESTRADA PA-C 09/26/15 Metformin* (Glucophage*) 500 Mg Tab, 500 MG PO DAILY, #30 TAB Prov:LAQUITA GARCIA MD 07/04/15 Reported Medications Methotrexate* (Methotrexate*) 2.5 Mg Tab, 2.5 MG PO weekly 06/22/13 Prednisone (Prednisone) 20 Mg Tablet, 20 MG PO DAILY 04/01/13 Tramadol HCl (Tramadol HCl) 50 Mg Tablet, 50 MG PO Q6 11/10/11 Allergies Allergies: Coded Allergies: No Known Drug Allergy (Verified Allergy, Mild, 3/24/17) PMhx/Soc History of Surgery: Yes (C SECTION ) Anesthesia Reaction: No Hx Neurological Disorder: No Hx Respiratory Disorders: No Hx Cardiac Disorders: No Hx Psychiatric Problems: No Hx Miscellaneous Medical Probl: Yes (arthritis, dm) Hx Alcohol Use: No Hx Substance Use: No Hx Tobacco Use: No Physical Exam Vitals Vital Signs Date Time Temp Pulse Resp B/P Pulse Ox O2 Delivery O2 Flow Rate FiO2 04/08/17 12:12 98.5 97 16 125/70 96 Physical Exam INITIAL VITAL SIGNS: Reviewed by me GENERAL: Awake, alert and oriented x 4, well appearing, nontoxic, speaking in full sentences. No acute distress HEAD: Atraumatic NECK: Supple. No masses. Full range of motion. No meningismus. No midline tenderness. RESPIRATORY: Clear to auscultation bilaterally. Symmetric chest wall rise. No wheezing or rales. No accessory muscle use. CV: Regular rate and rhythm. No murmurs, rubs, or gallops. EXTREMITIES: The right fourth digit on the lateral surface before the PIP joint there is a small half centimeter bug bite-like lesion that is mildly erythematous, there is no bleeding or drainage, no warmth, capillary refill less than 2 seconds Procedures/MDM Patient here with what looks like a small bug bite on her right finger. It does not appear to be infected however given she is diabetic I will treat her prophylactically with Bactrim and Keflex. She also requested refill of her Metformin which she last ate yesterday which I also provided her with. Patient counseled regarding my diagnostic impression and care plan. Prior to discharge all questions answered. Pt agrees with treatment plan and understands strict return precautions. Pt is instructed to follow up with primary care provider within 24-48 hours. Precautionary instructions provided including instructions to return to the ER if not improving or for any worsening or changing symptoms or concerns. Departure Diagnosis: Primary Impression: Bug bite of finger, infected Additional Impression: Medication refill Condition: Stable Patient Instructions: Taking Medicine Safely, Cellulitis Additional Instructions: Llame al doctor BJORN y shena palomo CARLOS PARA DENTRO DE 1-2 IGLESIAS.Dgale a la secretaria que nosotros le instruimos hacer esta carlos.Avise o llame si campuzano condicin se empeora antes de la carlos. Regresa aqui si peor o no mejor. SALINAS,ANGIE PA-C Apr 08, 2017 12:47
== END 2017-04-08 13:03 | disposition home or self-care (01) ==
LOC: FTE 11:57
DX: S60.464A Insect bite (nonvenomous) of right ring finger, initial encounter (principal); L08.89 Other specified local infections of the skin and subcutaneous tissue; E11.9 Type 2 diabetes mellitus without complications; W57.XXXA Bitten or stung by nonvenomous insect and other nonvenomous arthropods, initial encounter; Y92.9 Unspecified place or not applicable; Z76.0 Encounter for issue of repeat prescription; Z79.84 Long term (current) use of oral hypoglycemic drugs
CPT/HCPCS: 99284

== ENCOUNTER 2017-04-13 06:23 | Emergency (ER) | payer OTHER ==
[~2017-04-13] VITALS: Ht 162.6 cm; Wt 115.0 kg
[~2017-04-13 06:23] MED LIST changes: +IBUP800T25 PO; +MTF1000T PO
[2017-04-13 06:26] VITALS: Ht 162.6 cm; Wt 115.0 kg
[2017-04-13] MEDS ORDERED: CLIN-73 PO (07:00)
[2017-04-13] MEDS ORDERED: LIDOCAINE 2% (MDV) 20 ML INJ INJ ONE (07:00)
[2017-04-13] MEDS ORDERED: HYDROCODONE/APAP (5/325) TAB PO ONE (07:00)
--- NOTE | 2017-04-13 07:09 | ERD ---
ER Documentation Chief Complaint Date/Time DATE: 04/13/17 TIME: 07:03 Chief Complaint Complains of abscess to right ring finger HPI This 52-year-old female who presents the emergency department today for an abscess to her right ring finger. Patient was seen here last week and was given antibiotics. States that she took both medications as prescribed. States that the area looks better but she had it on a laundry cart yesterday and she started having pus come out of it. Denies any fevers or chills ROS All systems reviewed and are negative except as per history of present illness. Medications Home Meds Active Scripts Clindamycin Hcl* (Clindamycin Hcl*) 300 Mg Capsule, 300 MG PO QID for 7 Days, CAP Prov:MCKAYLA CARDENAS PA-C 04/13/17 Metformin* (Glucophage*) 1,000 Mg Tablet, 1000 MG PO BID, #60 TAB Prov:ANIGE SALINAS PA-C 04/08/17 Cephalexin* (Keflex*) 500 Mg Capsule, 500 MG PO QID for 7 Days, CAP Prov:ANGIE SALINAS PA-C 04/08/17 Ibuprofen* (Motrin*) 800 Mg Tab, 800 MG PO Q6, #30 TAB Prov:ANGIE SALINAS PA-C 04/08/17 Sulfamethoxazole/Trimethoprim* (Bactrim Ds* Tablet) 1 Each Tablet, 1 TAB PO BID , #14 TAB Prov:ANGIE SALINAS PA-C 04/08/17 Ibuprofen* (Motrin*) 600 Mg Tab, 600 MG PO Q6H Y for PAIN AND OR ELEVATED TEMP, #30 TAB Prov:JOHANNE MCCANN PA-C 02/16/17 Metformin Hcl (Glucophage) 500 Mg Tablet, 500 MG PO WITH MEALS, #90 TAB Prov:JOHANNE MCCANN-C 02/16/17 Sulfamethoxazole/Trimethoprim* (Bactrim Ds* Tablet) 1 Each Tablet, 1 TAB PO BID , #14 TAB Prov:JOHANNE MCCANN-C 02/16/17 Cephalexin* (Keflex*) 500 Mg Capsule, 500 MG PO QID for 10 Days, CAP Prov:JOHANNE MCCANNC 02/16/17 Ibuprofen* (Motrin*) 600 Mg Tab, 600 MG PO Q6, #20 TAB Prov:CLARA RODRIGUEZ MD 12/15/16 Tramadol HCl (Tramadol HCl) 50 Mg Tablet, 50 MG PO Q4 Y for PAIN, #20 TAB Prov:CLARA RODRIGUEZ MD 12/15/16 Cephalexin* (Keflex*) 500 Mg Capsule, 500 MG PO QID for 10 Days, CAP Prov:CLARA RODRIGUEZ MD 12/15/16 Sulfamethoxazole-Trimethoprim* (Bactrim* DS) 800-160 Mg Tab, 1 TAB PO BID for 10 Days, TAB Prov:CLARA RODRIGUEZ MD 12/15/16 Tramadol HCl (Tramadol HCl) 50 Mg Tablet, 50 MG PO Q4 Y for PAIN, #18 TAB Prov:CLARA RODRIGUEZ MD 12/01/16 Ibuprofen* (Motrin*) 600 Mg Tab, 600 MG PO Q6, #20 TAB Prov:CLARA RODRIGUEZ MD 11/28/16 Cephalexin* (Keflex*) 500 Mg Capsule, 500 MG PO QID for 10 Days, CAP Prov:CLARA RODRIGUEZ MD 11/28/16 Sulfamethoxazole-Trimethoprim* (Bactrim* DS) 800-160 Mg Tab, 1 TAB PO BID for 10 Days, TAB Prov:CLARA RODRIGUEZ MD 11/28/16 Diclofenac Sodium* (Voltaren* Gel) 1% -100 Gm Gel, 2 GM TOP QID, #1 TUB Prov:KELLY ESTRADA PA-C 09/26/15 Naproxen* (Naproxen*) 500 Mg Tablet, 500 MG PO BID Y for PAIN, #30 TAB Prov:KELLY ESTRADA PA-C 09/26/15 Metformin* (Glucophage*) 500 Mg Tab, 500 MG PO DAILY, #30 TAB Prov:LAQUITA GAONA MD 07/04/15 Reported Medications Methotrexate* (Methotrexate*) 2.5 Mg Tab, 2.5 MG PO weekly 06/22/13 Prednisone (Prednisone) 20 Mg Tablet, 20 MG PO DAILY 04/01/13 Tramadol HCl (Tramadol HCl) 50 Mg Tablet, 50 MG PO Q6 3/5/12 Allergies Allergies: Coded Allergies: No Known Drug Allergy (Verified Allergy, Mild, 11/28/16) PMhx/Soc History of Surgery: Yes (C SECTION ) Anesthesia Reaction: No Hx Neurological Disorder: No Hx Respiratory Disorders: No Hx Cardiac Disorders: No Hx Psychiatric Problems: No Hx Miscellaneous Medical Probl: Yes (arthritis, dm) Hx Alcohol Use: No Hx Substance Use: No Hx Tobacco Use: No Smoking Status: Never smoker Physical Exam Vitals Vital Signs Date Time Temp Pulse Resp B/P Pulse Ox O2 Delivery O2 Flow Rate FiO2 04/13/17 06:26 97.5 98 20 149/76 97 Physical Exam Const: Obese, no acute distress Head: Atraumatic Eyes: Normal Conjunctiva ENT: Normal External Ears, Nose and Mouth. Neck: Full range of motion..~ No meningismus. Resp: Clear to auscultation bilaterally Cardio: Regular rate and rhythm, no murmurs Skin: Mild skin sloughing right hand fourth finger dorsal aspect secondary to swelling Back: No midline or flank tenderness Ext: Right hand fourth finger with evidence of swelling and mild drainage and localized erythema. Full active range of motion of fingers. Pulses 2+. Distal neurovascularly intact Neur: Awake and alert Psych: Normal Mood and Affect Results 24 hrs Current Medications Medications (Trade) Dose Ordered Sig/Lexii Route PRN Reason Start Time Stop Time Status Last Admin Dose Admin Lidocaine (Xylocaine 2% (Mdv) 20 ml) 20 ml ONCE ONCE INJ 04/13/17 07:00 04/13/17 07:01 DC Acetaminophen/ Hydrocodone Bitart (Ada (5/325)) 1 tab ONCE ONCE PO 04/13/17 07:00 04/13/17 07:01 DC Procedures/MDM This is a right-handed 52-year-old female presents emergency department today for some right hand pain and swelling and reports of an abscess. Patient was seen here in April 08, 2017 after which she believed was an insect bite to her right hand. Patient does have a history of diabetes. She was placed on Bactrim and Keflex and patient indicated that she has taken all of her medication. Today on physical exam patient has evidence of some mild drainage from the area as it is swollen and has localized erythema. I explained to the patient that I felt that an incision and drainage may be beneficial to help relieve some of the pressure and infection. I explained the risks and benefits of the procedure and patient agreed to proceed. The wound was cleaned in the usual sterile fashion. Patient tolerated the procedure well and there were no complications. Patient was given Ada here in the emergency department Abscess Incision and Drainage with irrigation by me: Location: Right hand fourth finger Anesthesia: [Local 1% Lidocaine] 4 cc with digital block and local Technique: [Irrigated. Disrupted loculations w/ instrumentation ] Packing: [None] Complications: [Neurovascularly intact post procedure] Only a small amount of drainage was removed and was mostly bloody drainage. The swelling was decreased and this may have been a hematoma as well secondary to patient hitting it however I would expect that the wound would have improved more after being on antibiotics for a week. I explained this to the patient. Dr. Gaona did see and evaluate the patient in recommended that the patient be switched to clindamycin and referred to [facility]. I have explained this to the patient. Patient understood she was instructed to go there today. 48 hour wound check. Scar minimization instructions given. Patient's skin symptoms have stabilized while they have been evaluated in the department and are appropriate for outpatient care and work up. Patient is afebrile and otherwise well-appearing. Symptoms at this time is consistent with abscess and cellulitis. Low suspicion for deep space tracking infection. Low suspicion for sepsis, flexor tenosynovitis or necrotizing fasciitis Patient was discharged with clindamycin and referred to [facility] hand clinic At this time the patient is stable for discharge and outpatient management. Patient should follow up with their PCP in the next 1-2 days. They may return to the emergency department sooner for any persistent or worsening of symptoms. Patient understood and agreed with the plan.. Departure Diagnosis: Primary Impression: Finger pain, right Additional Impression: Abscess Condition: Fair Patient Instructions: Abscess, Incision And Drainage Referrals: [facility] Additional Instructions: Llame al doctor BJORN y shena palomo CARLOS PARA DENTRO DE 1-2 IGLESIAS.Dgale a la secretaria que nosotros le instruimos hacer esta carlos.Avise o llame si campuzano condicin se empeora antes de la carlos. Regresa aqui si peor o no mejor. Go to [facility] clinic today Take new antibiotics as prescribed Keep wound clean and dry Wound check in 48 hours MCKAYLA CARDENAS PA-C Apr 13, 2017 07:09
[2017-04-13 07:18] VITALS: BP 142/78; PULSE 75; RESP 19
== END 2017-04-13 07:19 | disposition home or self-care (01) ==
LOC: FTE 06:23
DX: M79.644 Pain in right finger(s) (principal); E66.9 Obesity, unspecified; E11.9 Type 2 diabetes mellitus without complications; Z68.41 Body mass index [BMI] 40.0-44.9, adult; Z79.84 Long term (current) use of oral hypoglycemic drugs
CPT/HCPCS: 26010; Z7502; Z7610

== ENCOUNTER 2017-04-25 12:22 | Emergency (ER) | payer OTHER ==
[~2017-04-25] VITALS: Ht 152.4 cm; Wt 112.5 kg
[~2017-04-25 12:22] MED LIST changes: +CLIN-73 PO
[2017-04-25 12:26] VITALS: Ht 152.4 cm; Wt 112.5 kg
[2017-04-25] MEDS ORDERED: NAPR-260 PO (12:43)
[2017-04-25] MEDS ORDERED: ACET500C5 PO (12:46)
--- NOTE | 2017-04-25 12:55 | ERD ---
ER Documentation Chief Complaint Date/Time DATE: 04/25/17 TIME: 12:49 Chief Complaint r elbow pain 2ndary to arhtritis for past few days HPI A 52-year-old female who presents the emergency department today complaining of right elbow pain for the past couple of days. Patient states that she has had no new trauma and has a history of arthritis and would just like medication for pain. Denies any fevers or chills. States she would also like a work note to return to work after the cellulitis that she had on her right hand. ROS All systems reviewed and are negative except as per history of present illness. Medications Home Meds Active Scripts Acetaminophen* (Tylophen*) 500 Mg Capsule, 1 CAP PO Q6H Y for PAIN AND OR ELEVATED TEMP, #30 CAP Prov:MCKAYLA CARDENAS PA-C 04/25/17 Naproxen* (Naprosyn*) 500 Mg Tablet, 500 MG PO BID Y for PAIN AND/OR INFLAMMATION, #30 TAB Prov:MCKAYLA CARDENAS PA-C 04/25/17 Clindamycin Hcl* (Clindamycin Hcl*) 300 Mg Capsule, 300 MG PO QID for 7 Days, CAP Prov:MCKAYLA CARDENAS PA-C 04/13/17 Metformin* (Glucophage*) 1,000 Mg Tablet, 1000 MG PO BID, #60 TAB Prov:ANGIE SALINAS PA-C 04/08/17 Cephalexin* (Keflex*) 500 Mg Capsule, 500 MG PO QID for 7 Days, CAP Prov:ANGIE SALINAS PA-C 04/08/17 Ibuprofen* (Motrin*) 800 Mg Tab, 800 MG PO Q6, #30 TAB Prov:ANGIE SALINAS PA-C 04/08/17 Sulfamethoxazole/Trimethoprim* (Bactrim Ds* Tablet) 1 Each Tablet, 1 TAB PO BID , #14 TAB Prov:ANGIE SALINAS PA-C 04/08/17 Ibuprofen* (Motrin*) 600 Mg Tab, 600 MG PO Q6H Y for PAIN AND OR ELEVATED TEMP, #30 TAB Prov:JOHANNE MCCANN PA-C 02/16/17 Metformin Hcl (Glucophage) 500 Mg Tablet, 500 MG PO WITH MEALS, #90 TAB Prov:JOHANNE MCCANN PA-C 02/16/17 Sulfamethoxazole/Trimethoprim* (Bactrim Ds* Tablet) 1 Each Tablet, 1 TAB PO BID , #14 TAB Prov:JOHANNE MCCANN PA-C 02/16/17 Cephalexin* (Keflex*) 500 Mg Capsule, 500 MG PO QID for 10 Days, CAP Prov:JOHANNE MCCANN PA-C 02/16/17 Ibuprofen* (Motrin*) 600 Mg Tab, 600 MG PO Q6, #20 TAB Prov:CLARA RODRIGUEZ MD 12/15/16 Tramadol HCl (Tramadol HCl) 50 Mg Tablet, 50 MG PO Q4 Y for PAIN, #20 TAB Prov:CLARA RODRIGUEZ MD 12/15/16 Cephalexin* (Keflex*) 500 Mg Capsule, 500 MG PO QID for 10 Days, CAP Prov:CLARA RODRIGUEZ MD 12/15/16 Sulfamethoxazole-Trimethoprim* (Bactrim* DS) 800-160 Mg Tab, 1 TAB PO BID for 10 Days, TAB Prov:CLARA RODRIGUEZ MD 12/15/16 Tramadol HCl (Tramadol HCl) 50 Mg Tablet, 50 MG PO Q4 Y for PAIN, #18 TAB Prov:CLARA RODRIGUEZ MD 12/01/16 Ibuprofen* (Motrin*) 600 Mg Tab, 600 MG PO Q6, #20 TAB Prov:CLARA RODRIGUEZ MD 11/28/16 Cephalexin* (Keflex*) 500 Mg Capsule, 500 MG PO QID for 10 Days, CAP Prov:CLARA RODRIGUEZ MD 11/28/16 Sulfamethoxazole-Trimethoprim* (Bactrim* DS) 800-160 Mg Tab, 1 TAB PO BID for 10 Days, TAB Prov:CLARA RODRIGUEZ MD 11/28/16 Diclofenac Sodium* (Voltaren* Gel) 1% -100 Gm Gel, 2 GM TOP QID, #1 TUB Prov:KELLY ESTRADA PA-C 09/26/15 Naproxen* (Naproxen*) 500 Mg Tablet, 500 MG PO BID Y for PAIN, #30 TAB Prov:KELLY ESTRADA PA-C 09/26/15 Metformin* (Glucophage*) 500 Mg Tab, 500 MG PO DAILY, #30 TAB Prov:LAQUITA GARCIA MD 07/04/15 Reported Medications Methotrexate* (Methotrexate*) 2.5 Mg Tab, 2.5 MG PO weekly 06/22/13 Prednisone (Prednisone) 20 Mg Tablet, 20 MG PO DAILY 04/01/13 Tramadol HCl (Tramadol HCl) 50 Mg Tablet, 50 MG PO Q6 11/10/11 Allergies Allergies: Coded Allergies: No Known Drug Allergy (Verified Allergy, Mild, 11/28/16) PMhx/Soc History of Surgery: Yes (C SECTION ) Anesthesia Reaction: No Hx Neurological Disorder: No Hx Respiratory Disorders: No Hx Cardiac Disorders: No Hx Psychiatric Problems: No Hx Miscellaneous Medical Probl: Yes (arthritis, dm) Hx Alcohol Use: No Hx Substance Use: No Hx Tobacco Use: No Smoking Status: Never smoker Physical Exam Vitals Vital Signs Date Time Temp Pulse Resp B/P Pulse Ox O2 Delivery O2 Flow Rate FiO2 04/25/17 12:26 97.8 116 18 122/76 98 Physical Exam Const: Pleasant, no acute distress Head: Atraumatic Eyes: Normal Conjunctiva ENT: Normal External Ears, Nose and Mouth. Neck: Full range of motion..~ No meningismus. Resp: Clear to auscultation bilaterally Cardio: Regular rate and rhythm, no murmurs Skin: No petechiae or rashes no erythema or warmth. Back: No midline or flank tenderness Ext: No cyanosis, or edema. Full active range of motion. Pulses 2+ per distal neurovascular intact. No erythema or warmth. Neur: Awake and alert Psych: Normal Mood and Affect Procedures/MDM This a 52-year-old female who presents the emergency department today complaining of some right elbow pain for the past couple of days. Patient was requesting medication for pain for home. She denies any new trauma, fevers or chills. Patient's elbow exam is benign. Patient does have a history of arthritis. Patient was given a prescription for Naprosyn and Tylenol for home she declined any pain medication here in the emergency department. Patient was also wanting a work note to return to work on Thursday after the cellulitis that she had on her right hand. I did see this patient on April 13 2017 for an infected insect bite. Patient had cellulitis at that time and was sent to [facility] for further evaluation. She had been given a prescription for clindamycin for which she has finished her course. Again she is afebrile and otherwise well-appearing. The wound is well-healed. She has full active range of motion. There is no evidence of cellulitis, sepsis or deep space infection. I feel the patient is appropriate to return back to work. At this time the patient is stable for discharge and outpatient management. Patient should follow up with their PCP in the next 1-2 days. They may return to the emergency department sooner for any persistent or worsening of symptoms. Patient understood and agreed with the plan. Departure Diagnosis: Primary Impression: Elbow pain Laterality: right Qualified Code: M25.521 - Right elbow pain Condition: Fair Patient Instructions: What Is Arthritis? Referrals: [facility] ted se smiley hecho un examen mdico de control que le indica que no est en palomo condicin que requiera tratamiento urgente en el Departamento de Emergencia. Un estudio ms profundo y el tratamiento de campuzano condicin pueden esperar sin ningn riesgo hasta que usted sea atendida/o en el consultorio de campuzano mdico o palomo cl gregory. Es responsabilidad suya arreglar palomo carlos para el seguimiento del cecilia. MANEJO DE CONDICIONES NO URGENTES EN EL FUTURO 1) Si usted tiene un mdico de atencin primaria: Usted debera llamar a campuzano mdico de atencin primaria antes de venir al departamento de emergencia. Despus de las horas de consultorio, campuzano doctor o campuzano asociado/a est disponible por telfono. El mdico o enfermero de greg en el servicio telefnico puede asesorarle por sean medio para atender el problema, o cecilia contrario se puede programar palomo carlos. 2) Si usted no tiene un mdico de atencin primaria: Llame al mdico o clnica de referencia que aparece abajo shukri las horas de consultorio para hacer palomo carlos para que le vean. CLINICAS: [facility] [phone] [id number] [facility] [phone] [facility] [phone] [place] [address] [phone] [place] [address] [phone] [place] [phone] Additional Instructions: Llame al doctor MAANA y shena palomo CARLOS PARA DENTRO DE 1-2 IGLESIAS.Dgale a la secretaria que nosotros le instruimos hacer esta carlos.Avise o llame si campuzano condicin se empeora antes de la carlos. Regresa aqui si peor o no mejor. Take Naprosyn or Tylenol or Motrin for pain apply ice and heat intermittently for pain MCKAYLA CARDENAS PA-C Apr 25, 2017 12:54
== END 2017-04-25 14:57 | disposition home or self-care (01) ==
LOC: FTE 12:22
DX: M25.521 Pain in right elbow (principal); E11.9 Type 2 diabetes mellitus without complications; Z79.84 Long term (current) use of oral hypoglycemic drugs
CPT/HCPCS: 99283

== ENCOUNTER 2017-05-29 12:21 | Emergency (ER) | payer OTHER ==
[~2017-05-29] VITALS: Wt 115.0 kg
[~2017-05-29 12:21] MED LIST changes: +ACET500C5 PO; +NAPR-260 PO
[2017-05-29] MEDS ORDERED: LIDOCAINE 1% (MDV) 10 ML INJ INJ STA (12:44)
--- NOTE | 2017-05-29 13:28 | ERD ---
ER Documentation Chief Complaint Date/Time DATE: 05/29/17 TIME: 13:26 Chief Complaint LEFT BIG TOE PAIN HPI Patient is a 52-year-old female who presents with ingrown toenail on the left great toe that she has had for 2 weeks. She states it is painful when she walks when the area is touched. She has no fever. No numbness or tingling. She has not taken any medications for this. ROS All systems reviewed and are negative except as per history of present illness. Medications Home Meds Active Scripts Cephalexin* (Keflex*) 500 Mg Capsule, 500 MG PO QID for 7 Days, CAP Prov:ANGIE SALINAS PA-C 05/29/17 Ibuprofen* (Motrin*) 800 Mg Tab, 800 MG PO Q6, #30 TAB Prov:ANGIE SALINAS PA-C 05/29/17 Sulfamethoxazole/Trimethoprim* (Bactrim Ds* Tablet) 1 Each Tablet, 1 TAB PO BID , #14 TAB Prov:ANGIE SALINAS PA-C 05/29/17 Acetaminophen* (Tylophen*) 500 Mg Capsule, 1 CAP PO Q6H Y for PAIN AND OR ELEVATED TEMP, #30 CAP Prov:MCKAYLA CARDENAS PA-C 04/25/17 Naproxen* (Naprosyn*) 500 Mg Tablet, 500 MG PO BID Y for PAIN AND/OR INFLAMMATION, #30 TAB Prov:MCKAYLA CARDENAS PA-C 04/25/17 Clindamycin Hcl* (Clindamycin Hcl*) 300 Mg Capsule, 300 MG PO QID for 7 Days, CAP Prov:MCKAYLA CARDENAS PA-C 04/13/17 Metformin* (Glucophage*) 1,000 Mg Tablet, 1000 MG PO BID, #60 TAB Prov:ANGIE SALINAS PA-C 04/08/17 Cephalexin* (Keflex*) 500 Mg Capsule, 500 MG PO QID for 7 Days, CAP Prov:ANGIE SALINAS PA-C 04/08/17 Ibuprofen* (Motrin*) 800 Mg Tab, 800 MG PO Q6, #30 TAB Prov:ANGIE SALINAS PA-C 04/08/17 Sulfamethoxazole/Trimethoprim* (Bactrim Ds* Tablet) 1 Each Tablet, 1 TAB PO BID , #14 TAB Prov:ANGIE SALINAS PA-C 04/08/17 Ibuprofen* (Motrin*) 600 Mg Tab, 600 MG PO Q6H Y for PAIN AND OR ELEVATED TEMP, #30 TAB Prov:JOHANNE MCCANN PA-C 02/16/17 Metformin Hcl (Glucophage) 500 Mg Tablet, 500 MG PO WITH MEALS, #90 TAB Prov:JOHANNE MCCANN PA-C 02/16/17 Sulfamethoxazole/Trimethoprim* (Bactrim Ds* Tablet) 1 Each Tablet, 1 TAB PO BID , #14 TAB Prov:JOHANNE MCCANN PA-C 02/16/17 Cephalexin* (Keflex*) 500 Mg Capsule, 500 MG PO QID for 10 Days, CAP Prov:JOHANNE MCCANN PA-C 02/16/17 Ibuprofen* (Motrin*) 600 Mg Tab, 600 MG PO Q6, #20 TAB Prov:CLARA RODRIGUEZ MD 12/15/16 Tramadol HCl (Tramadol HCl) 50 Mg Tablet, 50 MG PO Q4 Y for PAIN, #20 TAB Prov:CLARA RODRIGUEZ MD 12/15/16 Cephalexin* (Keflex*) 500 Mg Capsule, 500 MG PO QID for 10 Days, CAP Prov:CLARA RODRIGUEZ MD 12/15/16 Sulfamethoxazole-Trimethoprim* (Bactrim* DS) 800-160 Mg Tab, 1 TAB PO BID for 10 Days, TAB Prov:CLARA RODRIGUEZ MD 12/15/16 Tramadol HCl (Tramadol HCl) 50 Mg Tablet, 50 MG PO Q4 Y for PAIN, #18 TAB Prov:CLARA RODRIGUEZ MD 12/01/16 Ibuprofen* (Motrin*) 600 Mg Tab, 600 MG PO Q6, #20 TAB Prov:CLARA RODRIGUEZ MD 11/28/16 Cephalexin* (Keflex*) 500 Mg Capsule, 500 MG PO QID for 10 Days, CAP Prov:CLARA RODRIGUEZ MD 11/28/16 Sulfamethoxazole-Trimethoprim* (Bactrim* DS) 800-160 Mg Tab, 1 TAB PO BID for 10 Days, TAB Prov:CLARA RODRIGUEZ MD 11/28/16 Diclofenac Sodium* (Voltaren* Gel) 1% -100 Gm Gel, 2 GM TOP QID, #1 TUB Prov:KELLY ESTRADA PA-C 09/26/15 Naproxen* (Naproxen*) 500 Mg Tablet, 500 MG PO BID Y for PAIN, #30 TAB Prov:KELLY ESTRADA PA-C 09/26/15 Metformin* (Glucophage*) 500 Mg Tab, 500 MG PO DAILY, #30 TAB Prov:LAQUITA GARCIA MD 07/04/15 Reported Medications Methotrexate* (Methotrexate*) 2.5 Mg Tab, 2.5 MG PO weekly 06/22/13 Prednisone (Prednisone) 20 Mg Tablet, 20 MG PO DAILY 04/01/13 Tramadol HCl (Tramadol HCl) 50 Mg Tablet, 50 MG PO Q6 11/10/11 Allergies Allergies: Coded Allergies: No Known Drug Allergy (Verified Allergy, Mild, 11/28/16) PMhx/Soc History of Surgery: Yes (C SECTION ) Anesthesia Reaction: No Hx Neurological Disorder: No Hx Respiratory Disorders: No Hx Cardiac Disorders: No Hx Psychiatric Problems: No Hx Miscellaneous Medical Probl: Yes (arthritis, dm) Hx Alcohol Use: No Hx Substance Use: No Hx Tobacco Use: No FmHx Family History: diabetes Physical Exam Vitals Vital Signs Date Time Temp Pulse Resp B/P Pulse Ox O2 Delivery O2 Flow Rate FiO2 05/29/17 12:26 98.0 77 18 141/71 99 Physical Exam Const: [] Head: Atraumatic Eyes: Normal Conjunctiva ENT: Normal External Ears, Nose and Mouth. Neck: Full range of motion..~ No meningismus. Resp: Clear to auscultation bilaterally Cardio: Regular rate and rhythm, no murmurs Skin: Left great toe lateral border of the nail is ingrown with surrounding erythema but no bleeding or drainage, tender to palpation Results 24 hrs Current Medications Medications (Trade) Dose Ordered Sig/Lexii Route PRN Reason Start Time Stop Time Status Last Admin Dose Admin Lidocaine HCl (Lidocaine 1% (Mdv) 10 ml) 10 ml ONCE STAT INJ 05/29/17 12:44 05/29/17 12:45 DC Procedures/MDM 52-year-old female presents with ingrown toenail. Patients is alert, oriented , well appearing, and in no distress with normal vital signs. There is no fever , tachycardia, or tachypnea. Patient's toe was prepped with Betadine and then 1 % plain lidocaine was used to perform a digital block on the toe. The ingrown portion of the nail was then removed. Patient tolerated the procedure well and there were no complications and upon completion the wound was dressed and bandaged. She is discharged with pain medication as well as Bactrim and Keflex. Patient counseled regarding my diagnostic impression and care plan. Prior to discharge all questions answered. Pt agrees with treatment plan and understands strict return precautions. Pt is instructed to follow up with primary care provider within 24-48 hours. Precautionary instructions provided including instructions to return to the ER if not improving or for any worsening or changing symptoms or concerns. Departure Diagnosis: Primary Impression: Ingrown nail Condition: Stable ANGIE SALINAS PA-C May 29, 2017 13:28
[2017-05-29] MEDS ORDERED: CEPH-443 PO (13:29)
[2017-05-29] MEDS ORDERED: SULF1TAB31 PO (13:29)
[2017-05-29] MEDS ORDERED: IBUP800T25 PO (13:29)
== END 2017-05-29 14:18 | disposition home or self-care (01) ==
LOC: FTE 12:21
DX: L60.0 Ingrowing nail (principal); E11.9 Type 2 diabetes mellitus without complications; Z79.84 Long term (current) use of oral hypoglycemic drugs
CPT/HCPCS: 11765; Z7502

== ENCOUNTER 2017-10-10 16:05 | Emergency (ER) | END 2017-10-10 20:57 | disposition home or self-care (01) ==

== ENCOUNTER 2017-12-29 14:14 | Emergency (ER) | END 2017-12-29 20:01 | disposition home or self-care (01) ==

== ENCOUNTER 2018-02-07 11:47 | Emergency (ER) | END 2018-02-07 12:33 | disposition home or self-care (01) ==

== ENCOUNTER 2018-05-12 11:20 | Emergency (ER) | END 2018-05-12 14:38 | disposition home or self-care (01) ==

== ENCOUNTER 2018-05-28 14:13 | Emergency (ER) | END 2018-05-28 15:49 | disposition home or self-care (01) ==

== ENCOUNTER 2018-07-07 10:14 | Emergency (ER) | END 2018-07-07 10:50 | disposition home or self-care (01) ==

== ENCOUNTER 2018-07-26 07:02 | Emergency (ER) | END 2018-07-26 07:36 | disposition home or self-care (01) ==

== ENCOUNTER 2018-09-01 11:26 | Emergency (ER) | END 2018-09-01 13:01 | disposition home or self-care (01) ==

== ENCOUNTER 2018-11-22 11:22 | Emergency (ER) | payer OTHER ==
[~2018-11-22] VITALS: Ht 175.3 cm; Wt 105.7 kg
[~2018-11-22 11:22] MED LIST changes: -ACET500C5 PO; -BACTDS PO; -CLIN-73 PO; -DICL100G37 TOP; +DOXY100T20 PO; +ELIM TOP; +FEXO180T61 PO; +FOLI-49 PO; -IBUP-1542 PO; -IBUP800T25 PO; +METF-849 PO; +METF500T24 PO; -METF500T4 PO; -NAPR-260 PO; -NAPR-688 PO; +NAPR-985 PO; +OMEP20CA16 PO; +PANT40TA3 PO; -PRED20TA PO; -TRAM50TA2 PO; +TRIA15CR55 TOP
[2018-11-22 11:55] VITALS: BP 124/65; PULSE 96; RESP 20; Ht 175.3 cm; Wt 105.7 kg
[2018-11-22] MEDS ORDERED: METF500T24 PO (13:29)
--- NOTE | 2018-11-22 13:31 | ERD ---
ER Documentation Chief Complaint Chief Complaint Patient here for medication refill Hx of Diabetes HPI 53-year-old female presents for medication refill. She takes metformin 500 mg twice a day. She denies any complaints currently. She does see ophthalmology as an outpatient. She states that she does have a primary care physician appointment but is in a month and she is running out of her medications. ROS All systems reviewed and are negative except as per history of present illness. Medications Home Meds Active Scripts Metformin Hcl* (Metformin Hcl*) 500 Mg Tablet, 500 MG PO BID for diabetes, #120 TAB 1 Refill Prov:ELAN SINGH DO 11/22/18 Metformin Hcl (Glucophage) 500 Mg Tablet, 500 MG PO BID for diabetes, #120 TAB Prov:ELAN SINGH DO 09/01/18 Metformin* (Glucophage*) 500 Mg Tab, 500 MG PO BID, #60 TAB Prov:KELLY ESTRADA PA-C 07/26/18 Metformin* (Glucophage*) 500 Mg Tab, 500 MG PO BID, #30 TAB Prov:MCKAYLA CARDENAS PA-C 07/07/18 Metformin* (Glucophage*) 500 Mg Tab, 500 MG PO BID, #60 TAB Prov:ELEUTERIO NAJERA PA-C 05/28/18 Naproxen* (Naprosyn*) 500 Mg Tablet, 500 MG PO BID PRN for PAIN AND/OR INFLAMMATION, #30 TAB Prov:ELEUTERIO NAJERA PA-C 05/28/18 Sulfamethoxazole/Trimethoprim* (Bactrim Ds* Tablet) 1 Each Tablet, 1 TAB PO BID, #14 TAB Prov:ELEUTERIO NAJERA PA-C 05/28/18 Cephalexin* (Keflex*) 500 Mg Capsule, 500 MG PO QID for 5 Days, CAP Prov:ELEUTERIO NAJERA PA-C 05/28/18 Metformin* (Glucophage*) 500 Mg Tab, 500 MG PO BID, #20 TAB Prov:BETZY DONALDSON PA-C 05/12/18 Permethrin* (Elimite*) 5% Cr, 1 APPLIC TOP ONCE for scabie for 1 Day, TUB please apply cream from neck to feet and leave on for 8-12 hours. Repeat again in 1 week. Prov:BETZY DONALDSON PA-C 05/12/18 Metformin* (Glucophage*) 1,000 Mg Tablet, 1000 MG PO BID, #60 TAB Prov:CLARA RODRIGUEZ MD 02/07/18 Fexofenadine Hcl* (Naomi*) 180 Mg Tablet, 180 MG PO DAILY, #15 TAB Prov:CLARA RODRIGUEZ MD 02/07/18 Triamcinolone Acetonide (Triamcinolone Acetonide) 0.1% - 15 Gm Cream.gm., 1 APPLIC TOP BID, #1 TUB 60g ok Prov:CLARA RODRIGUEZ MD 02/07/18 Doxycycline Hyclate* (Doxycycline Hyclate*) 100 Mg Tablet.dr, 100 MG PO BID for 10 Days, TAB Or monohydrate okay Prov:CLARA RODRIGUEZ MD 02/07/18 Pantoprazole* (Protonix*) 40 Mg Tablet.dr, 40 MG PO DAILY, #20 TAB Prov:ROSEY COLLINS MD 12/29/17 Reported Medications Omeprazole* (Omeprazole*) 20 Mg Capsule.dr, 20 MG PO DAILY, #30 CAP 12/29/17 Methotrexate* (Methotrexate*) 2.5 Mg Tab, 20 MG PO Q SUN, TAB 12/29/17 Metformin Hcl* (Metformin Hcl*) 500 Mg Tablet, 500 MG PO WITH BREAKFAST DINNE, #60 TAB 12/29/17 Folic Acid* (Folic Acid*) 1 Mg Tablet, 1 MG PO DAILY, TAB 12/29/17 Allergies Allergies: Coded Allergies: No Known Drug Allergy (Verified Allergy, Mild, 12/29/17) PMhx/Soc History of Surgery: Yes ( X3) Anesthesia Reaction: No Hx Neurological Disorder: No Hx Respiratory Disorders: No Hx Cardiac Disorders: No Hx Psychiatric Problems: No Hx Miscellaneous Medical Probl: Yes (diabetes,arthritis) Hx Alcohol Use: No Hx Substance Use: No Hx Tobacco Use: No Physical Exam Vitals Vital Signs Date Temp Pulse Resp B/P (MAP) Pulse Ox O2 O2 Flow FiO2 Time Delivery Rate 11/22/18 98.1 96 20 124/65 96 11:55 (84) Physical Exam Const: No acute distress Resp: Clear to auscultation bilaterally Cardio: Regular rate and rhythm, no murmurs Skin: No petechiae or rashes Ext: No cyanosis, or edema Neur: Awake and alert Psych: Normal Mood and Affect Procedures/MDM Medical Decision Making: Patient with history of diabetes presents for medication refills. She takes metformin. She has a PCP however she states that she does not have an appointment for about a month and she is running out of her medications. Patient appeared well on physical exam. Prescription(s): Patient given prescription for metformin. Patient advised to follow up with PCP in 1-2 days. Patient advised to return to ED for new or worsening symptoms. Patient stable on discharge from the ED. Disclaimer: Inadvertent spelling and grammatical errors are likely due to EHR/dictation software use and do not reflect on the overall quality of patient care. Also, please note that the electronic time recorded on this note does not necessarily reflect the actual time of the patient encounter. Departure Diagnosis: Primary Impression: Encounter for medication refill Condition: Fair Patient Instructions: Taking Medicine Safely Referrals: [facility] YOU HAVE RECEIVED A MEDICAL SCREENING EXAM AND THE RESULTS INDICATE THAT YOU DO NOT HAVE A CONDITION THAT REQUIRES URGENT TREATMENT IN THE EMERGENCY DEPARTMENT. FURTHER EVALUATION AND TREATMENT OF YOUR CONDITION CAN WAIT UNTIL YOU ARE SEEN IN YOUR DOCTORS OFFICE WITHIN THE NEXT 1-2 DAYS. IT IS YOUR RESPONSIBILITY TO MAKE AN APPOINTMENT FOR FOLOW-UP CARE. IF YOU HAVE A PRIMARY DOCTOR --you should call your primary doctor and schedule an appointment IF YOU DO NOT HAVE A PRIMARY DOCTOR YOU CAN CALL OUR PHYSICIAN REFERRAL HOTLINE AT IF YOU CAN NOT AFFORD TO SEE A PHYSICIAN YOU CAN CHOSE FROM THE FOLLOWING [facility] [address] [facility]. [facility] [address] [facility]. [facility] [address] [facility]. [facility] [address] [facility]. [facility] [address] [facility]. [facility] [address] Additional Instructions: Llame al doctor MAANA y shena palomo CARLOS PARA DENTRO DE 1-2 IGLESIAS.Dgale a la secretaria que nosotros le instruimos hacer esta carlos.Avise o llame si campuzano condicin se empeora antes de la carlos. Regresa aqui si peor o no mejor. ELAN SINGH DO Nov 22, 2018 13:31
== END 2018-11-22 13:49 | disposition home or self-care (01) ==
LOC: FTE 11:22
DX: Z76.0 Encounter for issue of repeat prescription (principal); E11.9 Type 2 diabetes mellitus without complications; Z79.84 Long term (current) use of oral hypoglycemic drugs
CPT/HCPCS: 99281

== ENCOUNTER 2019-02-22 11:08 | Emergency (ER) | payer OTHER ==
[~2019-02-22] VITALS: Ht 162.6 cm; Wt 104.0 kg
[2019-02-22 11:21] VITALS: BP 145/68; PULSE 87; RESP 18; Ht 162.6 cm; Wt 104.0 kg
[2019-02-22] MEDS ORDERED: METF-849 PO (11:43)
--- NOTE | 2019-02-22 12:42 | ERD ---
ER Documentation Chief Complaint Chief Complaint need metiformin refil HPI 54-year-old female presenting for medication refill of her metformin. Patient states is been 2 days since she has not taken her metformin. She states she ran out and is unable to follow-up with her primary doctor. Patient has diabetes and arthritis. NKDA. Surgical history . Social history denies ROS All systems reviewed and are negative except as per history of present illness. Medications Home Meds Active Scripts Metformin* (Glucophage*) 500 Mg Tab, 500 MG PO BID, #60 TAB Prov:KELLY ESTRADA PA-C 02/22/19 Metformin Hcl* (Metformin Hcl*) 500 Mg Tablet, 500 MG PO BID for diabetes, #120 TAB 1 Refill Prov:ELAN SINGH DO 11/22/18 Metformin Hcl (Glucophage) 500 Mg Tablet, 500 MG PO BID for diabetes, #120 TAB Prov:ELAN SINGH DO 09/01/18 Metformin* (Glucophage*) 500 Mg Tab, 500 MG PO BID, #60 TAB Prov:KELLY ESTRADA PA-C 07/26/18 Metformin* (Glucophage*) 500 Mg Tab, 500 MG PO BID, #30 TAB Prov:MCKAYLA CARDENAS PA-C 07/07/18 Metformin* (Glucophage*) 500 Mg Tab, 500 MG PO BID, #60 TAB Prov:ELEUTERIO NAJERA PA-C 05/28/18 Naproxen* (Naprosyn*) 500 Mg Tablet, 500 MG PO BID PRN for PAIN AND/OR INFLAMMATION, #30 TAB Prov:ELEUTERIO NAJERA PA-C 05/28/18 Sulfamethoxazole/Trimethoprim* (Bactrim Ds* Tablet) 1 Each Tablet, 1 TAB PO BID, #14 TAB Prov:ELEUTERIO NAJERA PA-C 05/28/18 Cephalexin* (Keflex*) 500 Mg Capsule, 500 MG PO QID for 5 Days, CAP Prov:ELEUTERIO NAJERA PA-C 05/28/18 Metformin* (Glucophage*) 500 Mg Tab, 500 MG PO BID, #20 TAB Prov:BETZY DONALDSON PA-C 05/12/18 Permethrin* (Elimite*) 5% Cr, 1 APPLIC TOP ONCE for scabie for 1 Day, TUB please apply cream from neck to feet and leave on for 8-12 hours. Repeat again in 1 week. Prov:BETZY DONALDSON PA-C 05/12/18 Metformin* (Glucophage*) 1,000 Mg Tablet, 1000 MG PO BID, #60 TAB Prov:CLARA RODRIGUEZ MD 02/07/18 Fexofenadine Hcl* (Naomi*) 180 Mg Tablet, 180 MG PO DAILY, #15 TAB Prov:CLARA RODRIGUEZ MD 02/07/18 Triamcinolone Acetonide (Triamcinolone Acetonide) 0.1% - 15 Gm Cream.gm., 1 APPLIC TOP BID, #1 TUB 60g ok Prov:CLARA RODRIGUEZ MD 02/07/18 Doxycycline Hyclate* (Doxycycline Hyclate*) 100 Mg Tablet.dr, 100 MG PO BID for 10 Days, TAB Or monohydrate okay Prov:CLARA RODRIGUEZ MD 02/07/18 Pantoprazole* (Protonix*) 40 Mg Tablet.dr, 40 MG PO DAILY, #20 TAB Prov:ROSEY COLLINS MD 12/29/17 Reported Medications Omeprazole* (Omeprazole*) 20 Mg Capsule.dr, 20 MG PO DAILY, #30 CAP 12/29/17 Methotrexate* (Methotrexate*) 2.5 Mg Tab, 20 MG PO Q SUN, TAB 12/29/17 Metformin Hcl* (Metformin Hcl*) 500 Mg Tablet, 500 MG PO WITH BREAKFAST DINNE, #60 TAB 12/29/17 Folic Acid* (Folic Acid*) 1 Mg Tablet, 1 MG PO DAILY, TAB 12/29/17 Allergies Allergies: Coded Allergies: No Known Drug Allergy (Verified Allergy, Mild, 12/29/17) PMhx/Soc History of Surgery: Yes ( X3) Anesthesia Reaction: No Hx Neurological Disorder: No Hx Respiratory Disorders: No Hx Cardiac Disorders: No Hx Psychiatric Problems: No Hx Miscellaneous Medical Probl: Yes (diabetes,arthritis) Hx Alcohol Use: No Hx Substance Use: No Hx Tobacco Use: No Smoking Status: Never smoker FmHx Family History: No diabetes, No coronary disease, No other Physical Exam Vitals Vital Signs Date Temp Pulse Resp B/P (MAP) Pulse Ox O2 O2 Flow FiO2 Time Delivery Rate 02/22/19 97.5 87 18 145/68 97 11:21 (93) Physical Exam GENERAL: The patient is well-appearing, well-nourished, in no acute distress HEENT: Atraumatic. Conjunctivae are pink. Pupils equal, round, and reactive to light. There is no scleral icterus. Tympanic membranes clear bilaterally. Oropharynx clear. CHEST: Clear to auscultation bilaterally. There are no rales, wheezes or rhonchi. HEART: Regular rate and rhythm. No murmurs, clicks, rubs or gallops. ABDOMEN:Soft, nontender and nondistended. Good bowel sounds. No rebound or guarding. No gross peritonitis. No gross organomegaly or masses. Procedures/MDM MDM: 54-year-old female presenting for medication refill. I have low suspicion for DKA or hyperglycemia complications. Patient's vitals are stable exam is non-concerning. I do not feel there is indication for blood work or further imaging. Patient is discharged with strict ER precautions and told to follow-up with primary care within 1 to 2 days for close evaluation. Patient is told if symptoms change or worsen to return immediately to the ER. All questions answered at discharge Departure Diagnosis: Primary Impression: Encounter for medication refill Condition: Stable Patient Instructions: Taking Medicine Safely Referrals: [facility] YOU HAVE RECEIVED A MEDICAL SCREENING EXAM AND THE RESULTS INDICATE THAT YOU DO NOT HAVE A CONDITION THAT REQUIRES URGENT TREATMENT IN THE EMERGENCY DEPARTMENT. FURTHER EVALUATION AND TREATMENT OF YOUR CONDITION CAN WAIT UNTIL YOU ARE SEEN IN YOUR DOCTORS OFFICE WITHIN THE NEXT 1-2 DAYS. IT IS YOUR RESPONSIBILITY TO MAKE AN APPOINTMENT FOR FOLOW-UP CARE. IF YOU HAVE A PRIMARY DOCTOR --you should call your primary doctor and schedule an appointment IF YOU DO NOT HAVE A PRIMARY DOCTOR YOU CAN CALL OUR PHYSICIAN REFERRAL HOTLINE AT IF YOU CAN NOT AFFORD TO SEE A PHYSICIAN YOU CAN CHOSE FROM THE FOLLOWING [facility] [address] [facility]. [facility] [address] [facility]. [facility] [address] [facility]. [facility] [address] [facility]. [facility] [address] [facility]. [facility] [address] Additional Instructions: FOLLOW UP WITH YOUR PRIMARY CARE PHYSICIAN TOMORROW.Return to this facility if you are not improving as expected. KELLY ESTRADA PA-C Feb 22, 2019 12:42
== END 2019-02-22 12:13 | disposition home or self-care (01) ==
LOC: FTE 11:08
DX: Z76.0 Encounter for issue of repeat prescription (principal); E11.9 Type 2 diabetes mellitus without complications; Z79.84 Long term (current) use of oral hypoglycemic drugs
CPT/HCPCS: 99281

== ENCOUNTER 2019-04-27 08:16 | Emergency (ER) | payer OTHER ==
[~2019-04-27] VITALS: Ht 160 cm; Wt 108.1 kg
[2019-04-27 08:18] VITALS: BP 120/76; PULSE 74; RESP 18; Ht 160 cm; Wt 108.1 kg
== END 2019-04-27 08:44 | disposition home or self-care (01) ==
LOC: FTE 08:16
DX: Z76.0 Encounter for issue of repeat prescription (principal); E11.9 Type 2 diabetes mellitus without complications; Z79.84 Long term (current) use of oral hypoglycemic drugs
CPT/HCPCS: 99281

== ENCOUNTER 2019-05-13 08:09 | Emergency (ER) | payer OTHER ==
[~2019-05-13] VITALS: Ht 165.1 cm; Wt 110.0 kg
[2019-05-13 08:21] VITALS: BP 126/62; PULSE 77; RESP 16; Ht 165.1 cm; Wt 110.0 kg
== END 2019-05-13 08:40 | disposition home or self-care (01) ==
LOC: FTE 08:09
DX: Z76.0 Encounter for issue of repeat prescription (principal); E11.9 Type 2 diabetes mellitus without complications; Z79.84 Long term (current) use of oral hypoglycemic drugs
CPT/HCPCS: 99281